=== PATIENT | male | born 1950 | race Caucasian/White ===

== ENCOUNTER 2017-06-20 17:36 | Emergency (ER) | payer MEDICARE ==
[2017-06-20] MEDS ORDERED: Adacel (T-DAP) 0.5 ML VIAL ONE (17:39)
--- NOTE | 2017-06-20 22:39 | RAD ---
RIGHT INDEX FINGER 06/20/17 Three views show a nondisplaced fracture through the terminal tuft of the distal phalanx of the inde x finger. The remainder of the finger appears intact. There is some bony spurring in the DIP joint. IMPRESSION: Fracture of the terminal tuft of the distal phalanx. POS: HOME
== END 2017-06-20 18:23 | disposition home or self-care (01) ==
LOC: BURERS 17:36
DX: S62.660A Nondisplaced fracture of distal phalanx of right index finger, initial encounter for closed fracture (principal); S61.210A Laceration without foreign body of right index finger without damage to nail, initial encounter; I25.2 Old myocardial infarction; I25.10 Atherosclerotic heart disease of native coronary artery without angina pectoris; E11.9 Type 2 diabetes mellitus without complications; E78.5 Hyperlipidemia, unspecified; I10 Essential (primary) hypertension; F17.210 Nicotine dependence, cigarettes, uncomplicated; Z79.02 Long term (current) use of antithrombotics/antiplatelets; Z79.84 Long term (current) use of oral hypoglycemic drugs; W31.9XXA Contact with unspecified machinery, initial encounter
CPT/HCPCS: 12001; 90471; 90715; J2001

== ENCOUNTER 2017-09-23 20:50 | Emergency (ER) | payer MEDICARE ==
[2017-09-23] MEDS ORDERED: Silver Sulfadiazine 1% Cream 50 GM JAR ONE (21:07)
== END 2017-09-23 21:24 | disposition home or self-care (01) ==
LOC: BURERS 20:50
DX: T25.121A Burn of first degree of right foot, initial encounter (principal); I25.2 Old myocardial infarction; I25.10 Atherosclerotic heart disease of native coronary artery without angina pectoris; E11.9 Type 2 diabetes mellitus without complications; E78.5 Hyperlipidemia, unspecified; I10 Essential (primary) hypertension; F17.210 Nicotine dependence, cigarettes, uncomplicated; X19.XXXA Contact with other heat and hot substances, initial encounter
CPT/HCPCS: 16000